=== PATIENT | male | born 1945 | race Caucasian/White ===

== ENCOUNTER → 2024-01-19 06:45 | Outpatient (REF) | payer MEDICARE, SELFPAY ==
[2024-01-19] MEDS: LEXISCAN 0.400000000000000022 MG IV (08:49)
== END ==
LOC: RCS 06:45
PROVIDERS: ATTENDING PHYSICIAN Internal Medicine Cardiovascular Disease; FAMILY PHYSICIAN Family Medicine
DX: I25.10 Atherosclerotic heart disease of native coronary artery without angina pectoris (principal); I48.0 Paroxysmal atrial fibrillation
CPT/HCPCS: 78452; 93017; A9500; J2785

== ENCOUNTER 2024-07-20 07:51 | Emergency (ER) | payer MEDICARE, SELFPAY ==
[2024-07-20 07:52] VITALS: BP 161/102
[2024-07-20 08:00] VITALS: BMI 30.3
[2024-07-20 08:04] VITALS: BP 145/92
--- NOTE | 2024-07-20 08:23 | ED.GENMED ---
History of Present Illness
General
Chief Complaint: Heart Rate Problem
Source: patient, records and previous hospital records
Exam Limitations: none
Time Seen by Provider: 07/20/24 07:59
Nursing documentation reviewed up to this point in time: agreed with
History of Present Illness
History of Present Illness:
79-year-old male PAF, status post cardioversion on Eliquis has been compliant with no missed doses for least the past month he has had palpitations, worse when he cuts wood, today felt palpitations, came to the ER hoping to get a cardioversion, also
having some right lower abdominal pain for the past month or so thinks he could have pulled a muscle, cutting wood, no nausea or vomiting eating and drinking fine no fever no hemoptysis no calf pain
Past History
Past History
ED Past Medical History: CAD, Cancer (Prostate), HTN, Hypercholesterolemia and OH
ED Past Surgical History: Cardiac (Multivessel PCI circumflex, LAD, RCA 2016, Stents x 3); Negative Appendectomy or Cholecystectomy
Social History
Tobacco: Non-smoker
Alcohol: Daily (Beer X2)
Drug: Marijuana (Years ago)
Personal:
Living: alone
Employment: Retired
Review of Systems
Review of Systems
All Other Systems: Not applicable
Constitutional: Reports fatigue; Denies fever
Respiratory: Denies trouble breathing
Cardiac: Reports palpitations
ABD/GI: Reports abdominal pain; Denies nausea or vomiting
: Reports no symptoms
Musculoskeletal: Reports no symptoms
Skin: Reports no symptoms
Neurological: Reports no symptoms
Phy Exam
Physical Exam
Physical Exam:
Physical Exam
General: no apparent distress, not acutely ill
Neck: No jaundice
Heart: Regular
Lungs: no acute respiratory distress. clear bilaterally
Abdomen: Soft nontender no guarding or rebound
Neuro: alert and oriented. no focal neurological deficits
Skin: no rash
Psychiatric: well kept. interactive and cooperative
Extremities: no edema.
Course
Orders/Labs/Results
Orders:
Orders
07/20/24 07:55
Electrocardiogram (*1) Urgent
Reason for Study: Atrial Fibrillation
EKG- Treatment ONCE
07/20/24 08:15
Complete Blood Count/With Diff Urgent
Comprehensive Metabolic Panel Urgent
Magnesium Urgent
Troponin I Urgent
Abnormal Lab Results
07/20/24
08:15
MCH 31.4 H pg
(27.0-31.0)
Abs Immat Gran (auto) 0.1 H 10^3/uL
(0-0.05)
Absolute Monos (auto) 1.1 H 10^3/uL
(0.1-0.6)
Immature Gran % 0.7 H %
(0-0.5)
Monocytes % 13.0 H %
(1.7-9.3)
Glucose 117 H mg/dl
(70-99)
07/20/24 08:15
07/20/24 08:15
Vital Signs
Initial and Last Documented VS:
Initial Vital Signs
Temp Pulse Resp BP Pulse Ox
97.6 F 106 18 161/102 97
07/20/24 07:52 07/20/24 07:52 07/20/24 07:52 07/20/24 07:52 07/20/24 07:52
Last Documented Vital Signs
Temp Pulse Resp BP Pulse Ox
97.6 F 80 20 120/92 97
07/20/24 07:52 07/20/24 09:00 07/20/24 09:00 07/20/24 09:00 07/20/24 09:00
MDM/Problems Addressed
Differential Diagnosis Includes:
A-fib, PAF, appendicitis, diverticulitis, muscle strain, biliary colic ACS
MDM/Problems Addressed:
A-fib, abdominal
Chronic conditions affecting care: CAD and Arrhythmia
Acute Exacerbation and/or Progression of Chronic Illness: CAD and Arrhythmia
*Pulse Oximetry
Patient hypoxic: no
*EKG
Interpreted by ED Provider?: Yes
Interpretation: abnormal
Comparison EKG: no comparison EKG present
Heart Rate: 108
Rhythm: a-fib
Ischemia: non-specific ST changes
*Sap Director Interpretation
Rate: normal
Interpretation: normal
Heart Rate: 100
Rhythm: a-fib
*Critical Care Note
Total Time (30-74mins, 75-104mins- exclusive of procedures): Not Applicable
Data Reviewed
Review of Other/Old Records Reveals: Labs and Discharge Summary
Source: patient
Update Note
Update Note:
Update patient in A-fib for some time, states he has been compliant with his anticoagulation, would be candidate for cardioversion does not have a ride home which is problematic, prior records reviewed does have history of CAD, stenting in 2016 with
a several stress test since then noted, as far as his abdominal pain he has no guarding or rebound no nausea or vomiting, I am unable to reproduce the pain, he does admit to cutting wood perhaps he strained his abdominal wall muscle is normal white
count
If he is unable to get a ride home we will try to get him some outpatient follow-up as this is not an acute issue
ED Attending Note
-
Portions of this chart may have been created with voice recognition software.� Occasional wrong word or��sound alike� substitutions may have occurred due to the inherent limitations of voice recognition software.
Discharge Plan
Departure
Patient Disposition: Home (Routine Discharge)
Date of Disposition: 07/20/24
Time of Disposition: 09:16
Patient with high blood pressure during this ER visit?: No
Condition: Good
Discharge Problem:
Atrial fibrillation
Instructions: Atrial Fibrillation (DC)
Prescriptions:
No Action
nitroglycerin 0.4 MG tablet, sublingual
0.4 mg sublingual [id number] PRN (Reason: chest pain)
atorvastatin 80 MG tablet
80 mg PO DAILY
losartan 50 MG tablet
50 mg PO DAILY Qty: 30 0RF
aspirin 81 MG tablet,delayed release (DR/EC)
81 mg PO DAILY Qty: 30 0RF
metoprolol succinate 25 MG tablet extended release 24 hr
25 mg PO DAILY Qty: 30 0RF
Eliquis 5 MG tablet
5 mg PO BID Qty: 60 0RF
Referrals:
Bandar Bernabe MD [Family Provider] -
Lico Shen MD [Active] - Next open appointment
Activity Restrictions/Additional Instructions:
Continue medications as prescribed, call your acquisitions librarian to arrange follow-up care
Interventions
Interventions:
*Risk Screen - Suicide Last Done: 07/20/24 07:52
*General Assessment Last Done: 07/20/24 07:52
*Neglect/Abuse Screening Last Done: 07/20/24 07:52
ED- Fall Risk Assessment Last Done: 07/20/24 08:00
*ED COVID-19 Vaccine History Last Done: 07/20/24 08:00
ED- Cardiac Assessment Last Done: 07/20/24 08:00
ED- Pulmonary Assessment Last Done: 07/20/24 08:00
Discharge Date and Time
Print Language: TRISTANIAN
[2024-07-20 08:25] LABS: % Basophils 1.2 % (0-2); % Eosinophils 4.6 % (0-6); % Immature Granulocytes 0.7 % (0-0.5); % Lymphocytes 28.2 % (20.5-51.1); % Neutrophils 52.3 % (42.2-75.2); Absolute Basophils 0.1 10^3/uL (0-0.2); Absolute Eosinophils 0.4 10^3/uL (0-0.7); Absolute Immature Granulocytes 0.1 10^3/uL (0-0.05); Absolute Lymphocytes 2.4 10^3/uL (1.2-3.4); Absolute Monocytes 1.1 10^3/uL (0.1-0.6); Absolute Neutrophils 4.5 10^3/uL (1.4-6.5); Hematocrit 43.5 % (39.0-52.0); Hemoglobin 15.2 g/dL (13.0-18.0); Mean Corp Hgb Conc. 34.9 g/dL (33.0-37.0); Mean Corpuscular Hgb 31.4 pg (27.0-31.0); Mean Corpuscular Volume 89.9 fL (80.0-94.0); Mean Platelet Volume 9.6 fL (7.4-10.4); Nucleated Red Blood Cells % 0 % (-); Platelet Count 313 10^3/uL (130-400); Red Blood Cell Count 4.84 10^6/uL (4.70-6.10); Red Cell Dist. Width 13.3 % (11.5-14.5); White Blood Cell Count 8.6 10^3/uL (4.8-10.8)
[2024-07-20 08:41] LABS: ALT (SGPT) 19 U/L (0-50); AST (SGOT) 20 U/L (17-59); Alkaline Phosphatase 87 U/L (38-126); Blood Urea Nitrogen 18 mg/dl (9-20); Calcium 9.4 mg/dl (8.4-10.2); Carbon Dioxide 22 mmol/L (22-30); Chloride 104 mmol/L (98-107); Estimated Creatinine Clearance 82 ml/min; Glucose 117 mg/dl (70-99); Potassium 4.2 mmol/L (3.5-5.1); Sodium 141 mmol/L (135-145); Total Bilirubin 0.6 mg/dl (0.2-1.3); Total Protein 6.4 g/dl (6.3-8.2); eGFR > 60.00
[2024-07-20 09:00] VITALS: BP 120/92
[2024-07-20 09:01] LABS: Troponin I 0.013 ng/ml
== END 2024-07-20 09:29 | disposition home or self-care (01) ==
LOC: EMR 07:51
PROVIDERS: EMERGENCY PHYSICIAN Emergency Medicine; FAMILY PHYSICIAN Family Medicine
DX: I48.0 Paroxysmal atrial fibrillation (principal); I25.10 Atherosclerotic heart disease of native coronary artery without angina pectoris; Z79.01 Long term (current) use of anticoagulants
CPT/HCPCS: 99284; 80053; 83735; 84484; 85025; 93005

== ENCOUNTER → 2024-08-02 13:54 | Outpatient (REF) | payer MEDICARE, SELFPAY ==
[2024-08-02 15:22] LABS: Blood Urea Nitrogen 22 mg/dl (9-20); Calcium 9.7 mg/dl (8.4-10.2); Carbon Dioxide 25 mmol/L (22-30); Chloride 105 mmol/L (98-107); Glucose 95 mg/dl (70-99); Potassium 4.9 mmol/L (3.5-5.1); Sodium 143 mmol/L (135-145); eGFR > 60.00
== END ==
LOC: REG 13:54
PROVIDERS: ATTENDING PHYSICIAN Family Medicine
DX: Z01.818 Encounter for other preprocedural examination (principal)
CPT/HCPCS: 36415; 80048

== ENCOUNTER → 2024-08-05 07:32 | Outpatient (REF) | payer MEDICARE, SELFPAY | LOC: RAD 07:32 | PROVIDERS: ATTENDING PHYSICIAN Physician Assistant; FAMILY PHYSICIAN Family Medicine | DX: R10.33 Periumbilical pain (principal); N28.89 Other specified disorders of kidney and ureter; K86.2 Cyst of pancreas | CPT/HCPCS: 74177; Q9967 ==

== ENCOUNTER 2024-08-12 08:40 | Day surgery (SDC) | payer MEDICARE, SELFPAY | END 2024-08-12 12:00 | disposition home or self-care (01) | LOC: CATH 08:40 | PROVIDERS: ATTENDING PHYSICIAN Internal Medicine Cardiovascular Disease; FAMILY PHYSICIAN Family Medicine; OTHER PHYSICIAN Nurse Practitioner | DX: I48.19 Other persistent atrial fibrillation (principal); I25.10 Atherosclerotic heart disease of native coronary artery without angina pectoris; E78.00 Pure hypercholesterolemia, unspecified; I25.2 Old myocardial infarction; Z85.46 Personal history of malignant neoplasm of prostate; Z95.5 Presence of coronary angioplasty implant and graft; Z79.82 Long term (current) use of aspirin; Z79.01 Long term (current) use of anticoagulants | CPT/HCPCS: 92960; 93005 ==

== ENCOUNTER → 2024-09-04 11:41 | Outpatient (REF) | payer MEDICARE, SELFPAY ==
[2024-09-04 13:42] LABS: Blood Urea Nitrogen 28 mg/dl (9-20); Calcium 10.1 mg/dl (8.4-10.2); Carbon Dioxide 27 mmol/L (22-30); Chloride 102 mmol/L (98-107); Glucose 96 mg/dl (70-99); Sodium 140 mmol/L (135-145); eGFR > 60.00
[2024-09-04 13:48] LABS: Potassium 4.9 mmol/L (3.5-5.1)
== END ==
LOC: REG 11:41
PROVIDERS: ATTENDING PHYSICIAN Nurse Practitioner
DX: I42.8 Other cardiomyopathies (principal)
CPT/HCPCS: 36415; 80048

== ENCOUNTER → 2024-10-10 11:57 | Outpatient (REF) | payer MEDICARE, SELFPAY ==
[2024-10-10 15:35] LABS: Blood Urea Nitrogen 20 mg/dl (9-20); Calcium 9.3 mg/dl (8.4-10.2); Carbon Dioxide 24 mmol/L (22-30); Chloride 105 mmol/L (98-107); Glucose 100 mg/dl (70-99); Potassium 4.6 mmol/L (3.5-5.1); Sodium 137 mmol/L (135-145); eGFR > 60.00
== END ==
LOC: REG 11:57
PROVIDERS: ATTENDING PHYSICIAN Nurse Practitioner; FAMILY PHYSICIAN Family Medicine
DX: I42.8 Other cardiomyopathies (principal)
CPT/HCPCS: 36415; 80048

== ENCOUNTER → 2024-11-16 11:02 | Outpatient (REF) | payer MEDICARE, SELFPAY ==
[2024-11-16 12:21] LABS: % Basophils 1.2 % (0-2); % Immature Granulocytes 0.3 % (0-0.5); % Lymphocytes 26.3 % (20.5-51.1); % Monocytes 11.8 % (1.7-9.3); % Neutrophils 55.4 % (42.2-75.2); Absolute Basophils 0.1 10^3/uL (0-0.2); Absolute Eosinophils 0.4 10^3/uL (0-0.7); Absolute Monocytes 0.9 10^3/uL (0.1-0.6); Absolute Neutrophils 4.2 10^3/uL (1.4-6.5); Hematocrit 43.7 % (39.0-52.0); Hemoglobin 14.8 g/dL (13.0-18.0); Mean Corp Hgb Conc. 33.9 g/dL (33.0-37.0); Mean Corpuscular Hgb 30.6 pg (27.0-31.0); Mean Corpuscular Volume 90.5 fL (80.0-94.0); Mean Platelet Volume 9.8 fL (7.4-10.4); Nucleated Red Blood Cells % 0 % (-); Platelet Count 337 10^3/uL (130-400); Red Blood Cell Count 4.83 10^6/uL (4.70-6.10); Red Cell Dist. Width 13.5 % (11.5-14.5); White Blood Cell Count 7.6 10^3/uL (4.8-10.8)
[2024-11-16 12:47] LABS: HDL Cholesterol 62 mg/dl; LDL Cholesterol, Calculated 138 mg/dl; Total Cholesterol 214 mg/dl (50-199); Triglyceride 72 mg/dl (10-149); Very Low Density Lipoprotein 14 mg/dl (0-30)
== END ==
LOC: REG 11:02
PROVIDERS: ATTENDING PHYSICIAN Nurse Practitioner Family; FAMILY PHYSICIAN Family Medicine
DX: I10 Essential (primary) hypertension (principal); I25.2 Old myocardial infarction; Z00.00 Encounter for general adult medical examination without abnormal findings; I25.10 Atherosclerotic heart disease of native coronary artery without angina pectoris; G25.81 Restless legs syndrome; Z95.5 Presence of coronary angioplasty implant and graft; C61 Malignant neoplasm of prostate; R00.1 Bradycardia, unspecified; M17.0 Bilateral primary osteoarthritis of knee; E78.5 Hyperlipidemia, unspecified; I48.0 Paroxysmal atrial fibrillation; Z96.652 Presence of left artificial knee joint; Z68.29 Body mass index [BMI] 29.0-29.9, adult; N28.89 Other specified disorders of kidney and ureter
CPT/HCPCS: 36415; 80061; 85025

== ENCOUNTER → 2024-11-21 13:59 | Outpatient (REF) | payer MEDICARE, SELFPAY | LOC: RAD 13:59 | PROVIDERS: ATTENDING PHYSICIAN Nurse Practitioner Family | DX: N28.89 Other specified disorders of kidney and ureter (principal); R10.9 Unspecified abdominal pain | CPT/HCPCS: 74160; Q9967 ==

== ENCOUNTER → 2024-12-10 07:27 | Outpatient (REF) | payer MEDICARE, SELFPAY | LOC: HWRCS 07:27 | PROVIDERS: ATTENDING PHYSICIAN Nurse Practitioner; FAMILY PHYSICIAN Family Medicine | DX: R06.09 Other forms of dyspnea (principal); I25.10 Atherosclerotic heart disease of native coronary artery without angina pectoris | CPT/HCPCS: 78452; 93017; A9500; J2785 ==

== ENCOUNTER → 2025-03-07 10:03 | Outpatient (REF) | payer MEDICARE, SELFPAY ==
[2025-03-07 11:16] LABS: ALT (SGPT) 20 U/L (0-50); AST (SGOT) 21 U/L (17-59); HDL Cholesterol 67 mg/dl; LDL Cholesterol, Calculated 73 mg/dl; Total Cholesterol 152 mg/dl (50-199); Triglyceride 62 mg/dl (10-149); Very Low Density Lipoprotein 12 mg/dl (0-30)
== END ==
LOC: REG 10:03
PROVIDERS: ATTENDING PHYSICIAN Nurse Practitioner; FAMILY PHYSICIAN Family Medicine
DX: E78.5 Hyperlipidemia, unspecified (principal)
CPT/HCPCS: 36415; 80061; 84450; 84460

== ENCOUNTER 2025-04-25 09:33 | Emergency (ER) | payer MEDICARE, SELFPAY ==
[2025-04-25 09:46] VITALS: BP 118/60
== END 2025-04-25 11:14 | disposition left against medical advice (07) ==
LOC: EMR 09:33
PROVIDERS: EMERGENCY PHYSICIAN Emergency Medicine
DX: R07.9 Chest pain, unspecified (principal); Z53.21 Procedure and treatment not carried out due to patient leaving prior to being seen by health care provider
CPT/HCPCS: 93005